=== PATIENT | male | born 1990 | race Caucasian/White ===

== ENCOUNTER 2022-06-20 17:42 | Emergency (ER) | payer OTHER ==
[~2022-06-20] VITALS: Ht 175.3 cm; Wt 84.0 kg
[2022-06-20] MEDS ORDERED: LIDOCAINE 1% 10 ML VIAL SQ ONE (19:00)
[2022-06-20 19:42] VITALS: BP 121/74
[2022-06-20] MEDS ORDERED: BACITRACIN 0.9 GM PACKET OINTMENT TP ONE (20:30)
[2022-06-20] MEDS ORDERED: ACETAMINOPHEN 500 MG TABLET PO ONE (20:45)
== END 2022-06-21 00:24 | disposition home or self-care (01) ==
LOC: EMS 17:42
DX: S01.511A Laceration without foreign body of lip, initial encounter (principal); S01.111A Laceration without foreign body of right eyelid and periocular area, initial encounter; K21.9 Gastro-esophageal reflux disease without esophagitis; X58.XXXA Exposure to other specified factors, initial encounter; Y93.89 Activity, other specified; Y92.89 Other specified places as the place of occurrence of the external cause; Y99.8 Other external cause status
CPT/HCPCS: 99284; 70450; 70486; 12014; J3490